=== PATIENT | female | born 1940 | race Caucasian/White ===

== ENCOUNTER 2022-11-14 12:19 | Emergency (ER) | payer MEDICARE, SELFPAY ==
[2022-11-14 12:28] VITALS: BP 106/59; PULSE 67; RESP 18; TEMP 37; O2SAT 97
--- NOTE | 2022-11-14 13:05 | ED_ITS ---
Documented by User: TANVIR Thompson 11/14/22 13:57 HPI - General Adult General Chief complaint: Wound/Laceration Stated complaint: WOUND CHECK Time Seen by Provider: 11/14/22 12:53 Source: patient and family Source information: daughter Mode of arrival: walk-in Limitations: no limitations History of Present Illness HPI narrative: patient is an 82 -year-old female presents from home with her daughter for evaluation of possible skin sore to the right buttock. Patient has remote history of hip replacement and states it sometimes aches and she'll favor her right side. Daughter concerned that this is a bedsore formation. The patient denies any significant pain, she is not diabetic, she does cook her own meals and there is question regarding caloric consumption and protein. Patient states she has had some falls in the past and has always wondered if her hip was affected. Patient appears in no distress and denies any recent fall but is agreeable to plain film x-rays in addition to initiation of wound care. Patient's daughter states that try to get into family doctor today, but were unable to do so and did not want to risk waiting the weekend. Related Data Allergies Allergy/AdvReac Type Severity Reaction Status Date / Time No Known Drug Allergies Allergy Verified 11/14/22 12:31 Review of Systems ROS Constitutional Denies: fever or chills Ears, nose, mouth, and throat Denies: throat pain Respiratory Denies: shortness of breath or cough Gastrointestinal Denies: abdominal pain or nausea Musculoskeletal Denies: back pain or neck pain Psychiatric Denies: anxiety Exam Narrative Exam Narrative: Nurses notes and vital signs reviewed and patient is not hypoxic. General: The patient appears well and in no apparent distress. resting comfo rtably on the cot Skin: Warm, dry, no pallor noted. RN Riley present at bedside, patient's right buttock initial tuberosity bony prominence has a 1.5 cm area of erythema non- blanchable with slight scab formation of the skin, but no external skin disruption to obtain a wound culture. No active drainage. Minimal erythema and desquamation in the inner buttock, but no extension into the area in question.. Patient denies any skin allodynia and there is no evidence of vesicle around the distribution. Head: Normocephalic, atraumatic Neck: Supple, trachea mid-line, no tenderness, no lymphadenopathy Eye: no conjunctival injection, no drainage Ears, Nose, Mouth, and Throat: external exam unremarkable Cardiovascular: irregularly irregular history of atrial fibrillation Respiratory: Patient is in no distress, no accessory muscle use, lungs are clear to auscultation, no wheezing, rales or rhonchi. Chest Wall: no tenderness Back: non-tender, no CVA tenderness Musculoskeletal: normal ROM, no tenderness, no swelling, denies pain with PROM of Hips. Pt has no skin break down at elbows or heels. has remote scab dorsal forearm. GI: Normal bowel sounds, no tenderness to palpation, no masses appreciated. No rebound, guarding, or rigidity noted. Neurological: A&O x4 Psychiatric: Cooperative Constitutional Vital Signs, click to edit/add: Last Vital Signs Temp 98.6 F 11/14/22 12:28 Pulse 83 11/14/22 14:39 Resp 18 11/14/22 14:39 BP 99/73 11/14/22 14:39 Pulse Ox 97 11/14/22 14:39 O2 Del Method Room Air 11/14/22 14:39 Course Vital Signs Vital signs: Vital Signs Temperature 98.6 F 11/14/22 12:28 Pulse Rate 67 11/14/22 12:28 Respiratory Rate 18 11/14/22 12:28 Blood Pressure 106/59 L 11/14/22 12:28 Pulse Oximetry 97 11/14/22 12:28 Oxygen Delivery Method Room Air 11/14/22 12:28 Temperature 98.6 F 11/14/22 12:28 Pulse Rate 83 11/14/22 14:39 Respiratory Rate 18 11/14/22 14:39 Blood Pressure 99/73 11/14/22 14:39 Pulse Oximetry 97 11/14/22 14:39 Oxygen Delivery Method Room Air 11/14/22 14:39 Medical Decision Making MDM Narrative Medical decision making narrative: very localized bedsore right buttock over the bony prominence of the initial tuberosity, we discussed protein intake with her diet, skin is not yyet disrupted, a deodorant protective dressing was applied pending her follow-up with wound care clinic. Patient's daughter may call to schedule an appointment and obtain referral from PCP if needed. Unable to take a wound culture today is a skin is not yet disrupted and appears to be more of a advancing stage I presentation. Discussed patient's concern of remote falls and hips, with one being replaced, she has no pain with gentle manipulation of the bilateral hips and x-ray was performed and discussed a bedside. Wound care discussed, dressing may remain intact, recommend offloading the area with changing position while sitting X-ray of the pelvis and left hip discussed a bedside, no evidence of fracture. 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 Recommend follow-up to wound care as discussed The patient is to followup with primary care physician ( wound care clinci in next 2-3 days or to return to the emergency department should any of the signs or symptoms worsen or new symptoms develop. Patient had questions answered. The patient agrees with the following Diagnosis and Treatment plan and the patient will be discharged home. Discharge Plan Discharge Chief Complaint: Wound/Laceration Clinical Impression: Stage I pressure ulcer of buttock Patient Disposition: Home, Self-Care Instructions: High Protein / High Calorie Diet (ED) Stand Alone Forms: Portal Instructions Referrals: Shaheed White MD [Physician] - As soon as possible (Alessia Cook pt. ) Jorge Alvares MD [Physician] - As soon as possible (Wound care clinic) Discharge Date/Time: 11/14/22 14:41 Documented by User: Maine Aragon MD 11/14/22 19:26 HPI - General Adult General Chief complaint: Wound/Laceration Stated complaint: WOUND CHECK Time Seen by Provider: 11/14/22 12:53 Related Data Allergies Allergy/AdvReac Type Severity Reaction Status Date / Time No Known Drug Allergies Allergy Verified 11/14/22 12:31 Exam Constitutional Vital Signs, click to edit/add: Last Vital Signs Temp 98.6 F 11/14/22 12:28 Pulse 83 11/14/22 14:39 Resp 18 11/14/22 14:39 BP 99/73 11/14/22 14:39 Pulse Ox 97 11/14/22 14:39 O2 Del Method Room Air 11/14/22 14:39 Course Vital Signs Vital signs: Vital Signs Temperature 98.6 F 11/14/22 12:28 Pulse Rate 67 11/14/22 12:28 Respiratory Rate 18 11/14/22 12:28 Blood Pressure 106/59 L 11/14/22 12:28 Pulse Oximetry 97 11/14/22 12:28 Oxygen Delivery Method Room Air 11/14/22 12:28 Temperature 98.6 F 11/14/22 12:28 Pulse Rate 83 11/14/22 14:39 Respiratory Rate 18 11/14/22 14:39 Blood Pressure 99/73 11/14/22 14:39 Pulse Oximetry 97 11/14/22 14:39 Oxygen Delivery Method Room Air 11/14/22 14:39 Medical Decision Making MDM Narrative Medical decision making narrative: very localized bedsore right buttock over the bony prominence of the initial tuberosity, we discussed protein intake with her diet, skin is not yyet disrupted, a deodorant protective dressing was applied pending her follow-up with wound care clinic. Patient's daughter may call to schedule an appointment and obtain referral from PCP if needed. Unable to take a wound culture today is a skin is not yet disrupted and appears to be more of a advancing stage I presentation. Discussed patient's concern of remote falls and hips, with one being replaced, she has no pain with gentle manipulation of the bilateral hips and x-ray was performed and discussed a bedside. Wound care discussed, dressing may remain intact, recommend offloading the area with changing position while sitting X-ray of the pelvis and left hip discussed a bedside, no evidence of fracture. 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 Recommend follow-up to wound care as discussed The patient is to followup with primary care physician ( wound care clinci in next 2-3 days or to return to the emergency department should any of the signs or symptoms worsen or new symptoms develop. Patient had questions answered. The patient agrees with the following Diagnosis and Treatment plan and the patient will be discharged home. Attending physician attestation I have seen and evaluated this patient. I have reviewed the mid-level provider?s documentation medical decision making and treatment plan. I agree with the mid- level provider?s assessment, and plan. Discharge Plan Discharge Chief Complaint: Wound/Laceration Clinical Impression: Stage I pressure ulcer of buttock Patient Disposition: Home, Self-Care Instructions: High Protein / High Calorie Diet (ED) Stand Alone Forms: Portal Instructions Referrals: Shaheed White MD [Physician] - As soon as possible (Alessia Cook pt. ) Jorge Alvares MD [Physician] - As soon as possible (Wound care clinic) Discharge Date/Time: 11/14/22 14:41
--- NOTE | 2022-11-14 13:36 | XR_ITS ---
The [address] [address] Patient Name: JUAQUIN CASTRO MRN: [id number] date: 1940 Sex: F Assigned Patient Location: ER Current Patient Location: ED.MAIN Accession/Order Number: [id number] Exam Date: 11/14/2022 13:15 Report Date: 11/14/2022 19:54 At the request of: JANNET FABIAN Procedure: XR hip LT 2V w/ pelvis PROCEDURE: XR hip LT 2V w/ pelvis HISTORY: history of replacement/ falls COMPARISON: None. FINDINGS: BONES:Mild narrowing of right hip joint space and small periarticular degenerative osteophytes, and suspected subchondral cysts. Prior left hip replacement without hardware fracture loosening. No bone fracture. SOFT TISSUES:No visible soft tissue swelling. EFFUSION:None visible. OTHER: Negative. XR/XR hip LT 2V w/ pelvis IMPRESSION: 1. No acute bone abnormality. 2. 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 3. Left hip replacement without hardware failure or acute bone abnormality. Preliminary findings were provided to the emergency department at time of imaging. Electronically authenticated by: MOISE VEGA Date: 11/14/2022 19:54
[2022-11-14 14:39] VITALS: BP 99/73; PULSE 83; RESP 18; O2SAT 97
== END 2022-11-14 14:41 | disposition home or self-care (01) ==
PROVIDERS: Emergency Provider Emergency Medicine; PCP Nurse Practitioner Family
DX: L89.311 Pressure ulcer of right buttock, stage 1 (principal); Z96.641 Presence of right artificial hip joint
CPT/HCPCS: 73502; 99283

== ENCOUNTER 2022-11-20 13:07 | Outpatient (OUT) | payer MEDICARE, SELFPAY | END 2022-11-20 13:08 | disposition home or self-care (01) | LOC: WC 13:07 | PROVIDERS: PCP Nurse Practitioner Family; Visit Provider Surgery | DX: L89.151 Pressure ulcer of sacral region, stage 1 (principal) | CPT/HCPCS: G0463 ==

== ENCOUNTER 2022-12-01 13:20 | Outpatient (OUT) | payer MEDICARE, SELFPAY ==
[2022-12-01 13:48] LABS: Basophils Percent Auto 0.6 % (0.2-2.0); Eosinophils Absolute Auto 0.1 10^3/uL (0.0-0.7); Eosinophils Percent Auto 1.6 % (0.9-7.0); Hematocrit 36.9 % (36.0-48.0); Hemoglobin 11.8 g/dL (12.0-16.0); Immature Granulocytes Abs Auto 0.01 10^3/uL (0.00-0.03); Immature Granulocytes Pct Auto 0.2 % (0.0-0.5); Lymphocytes Absolute Auto 1.5 10^3/uL (1.2-3.8); Mean Corpuscular Hemoglobin 31.7 pg (26.7-34.0); Mean Corpuscular Volume 99.2 fL (81.0-99.0); Monocytes Absolute Auto 0.5 10^3/uL (0.3-0.8); Neutrophils Absolute Auto 2.9 10^3/uL (1.4-6.5); Neutrophils Percent Auto 58.6 % (43.0-75.0); Platelet Count 137 10^3/uL (150-450); Red Blood Count 3.72 10^6/uL (4.20-5.40); Red Cell Distribution Width 15.6 % (11.0-15.0)
[2022-12-01 13:51] LABS: Erythrocyte Sedimentation Rate 23 mm/hr (<=30)
[2022-12-01 14:06] LABS: Alanine Aminotransferase 28 U/L (14-59); Albumin Level 3.7 g/dL (3.4-5.0); Alkaline Phosphatase 63 U/L (46-116); Anion Gap 7.9; Aspartate Amino Transferase 30 U/L (15-37); BUN Creatinine Ratio 21.1; Bilirubin Total 0.7 mg/dL (0.2-1.0); Calcium 9.9 mg/dL (8.5-10.1); Chloride 102 mmol/L (98-107); Estimated GFR (African America 35 (>=60); Estimated GFR (Non-African Ame 29 (>=60); Globulin 3.6 g/dL; Glucose 80 mg/dL (74-106); Potassium 3.9 mmol/L (3.5-5.1); Sodium 141 mmol/L (136-145); Total Protein 7.3 g/dL (6.4-8.2)
[2022-12-01 14:14] LABS: Magnesium 2.5 mg/dL (1.8-2.4); Thyroid Stimulating Hormone 3.208 uIU/mL (0.358-3.740)
[2022-12-01 14:43] LABS: Free T4 0.93 ng/dL (0.76-1.46)
[2022-12-01 15:36] LABS: Bilirubin Urine NEGATIVE (NEGATIVE); Blood Urine NEGATIVE (NEGATIVE); Clarity Urine CLEAR (CLEAR); Color Urine LT. YELLOW (YELLOW); Glucose Urine UA NEGATIVE (NEGATIVE); Ketones Urine NEGATIVE (NEGATIVE); Leukocyte Esterase Urine NEGATIVE (NEGATIVE); Nitrite Urine NEGATIVE (NEGATIVE); Protein Urine NEGATIVE (NEG/TRACE); Specific Gravity Urine 1.015 (1.005-1.025); Urobilinogen Urine 0.2 EU/dL (0.2-1.0)
[2022-12-01 15:47] LABS: Urine Microscopic Indicated ALREADY ORDERED
[2022-12-01 15:49] LABS: Bacteria Urine NONE SEEN #/HPF (NONE SEEN); Cast Seen? NONE SEEN #/LPF (NONE SEEN); Crystals Seen? None Seen #/HPF (None Seen); Mucus Urine NONE SEEN (NONE SEEN); RBC Urine NONE SEEN #/HPF (0-2); Squamous Epithelial Cell Urine RARE #/LPF (NONE/RARE); Urine Culture Indicated NO; WBC Urine NONE SEEN #/HPF (NONE SEEN)
== END 2022-12-01 13:21 | disposition home or self-care (01) ==
LOC: LAB 13:22
PROVIDERS: PCP Nurse Practitioner; Visit Provider Nurse Practitioner
DX: R53.1 Weakness (principal); E55.9 Vitamin D deficiency, unspecified; R41.3 Other amnesia
CPT/HCPCS: 36415; 80053; 81003; 82306; 82607; 83540; 83735; 84439; 84443; 85025; 85652

== ENCOUNTER 2023-01-04 15:09 | Observation (INO) | payer OTHER, SELFPAY ==
[2023-01-04] VITALS (38 sets, daily range): BP systolic 74–137; BP diastolic 49–95; PULSE 75–92; RESP 0–97; TEMP 36.4–37.3; O2SAT 93–100; BMI 21.3; BMI 20.8
--- NOTE | 2023-01-04 15:31 | ECG_ITS ---
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
--- NOTE | 2023-01-04 15:37 | ED_ITS ---
HPI - General Adult General Chief complaint: Weakness Stated complaint: Hypotension Time Seen by Provider: 01/04/23 15:29 Related Data Home Medications Medication Instructions Recorded Confirmed albuterol sulfate 2.5 mg/3 mL 2.5 mg inhalation Q6H 01/04/23 01/04/23 (0.083 %) solution for nebulization alendronate 70 mg tablet 70 mg PO QWEEK 01/04/23 01/04/23 apixaban 2.5 mg tablet (Eliquis) 2.5 mg PO BID 01/04/23 01/04/23 atorvastatin 80 mg tablet 80 mg PO DAILY 01/04/23 01/04/23 bumetanide 1 mg tablet 2 mg PO BID 01/04/23 01/04/23 carbidopa 10 mg-levodopa 100 mg 1 tab PO TID 01/04/23 01/04/23 tablet empagliflozin 10 mg tablet 10 mg PO DAILY 01/04/23 01/04/23 (Jardiance) fluoxetine 40 mg capsule 40 mg PO DAILY 01/04/23 01/04/23 ipratropium bromide 0.02 % 0.5 mg inhalation Q6H 01/04/23 01/04/23 solution for inhalation metoprolol succinate 25 mg 37.5 mg PO DAILY 01/04/23 01/04/23 tablet,extended release 24 hr olanzapine 2.5 mg tablet 2.5 mg PO QPM 01/04/23 01/04/23 potassium chloride 20 mEq 20 meq PO DAILY 01/04/23 01/04/23 tablet,extended release(part/cryst) sacubitril 24 mg-valsartan 26 mg 1 tab PO BID 01/04/23 01/04/23 tablet (Entresto) umeclidinium 62.5 mcg-vilanterol 1 inh inhalation DAILY 01/04/23 01/04/23 25 mcg/actuation powdr for inhalation (Anoro Ellipta) Allergies Allergy/AdvReac Type Severity Reaction Status Date / Time No Known Drug Allergies Allergy Verified 11/14/22 12:31 [facility] Medical History (Updated 01/04/23 @ 18:44 by Maverick Gomez) Exam Constitutional Vital Signs, click to edit/add: Last Vital Signs Temp 99.2 F 01/04/23 15:13 Pulse 88 01/04/23 16:20 Resp 2 L 01/04/23 16:20 BP 130/73 01/04/23 16:20 Pulse Ox 100 01/04/23 16:20 O2 Del Method Room Air 01/04/23 15:13 Course Vital Signs Vital signs: Vital Signs Temperature 99.2 F 01/04/23 15:13 Pulse Rate 79 01/04/23 15:13 Respiratory Rate 18 01/04/23 15:13 Blood Pressure 108/72 01/04/23 15:13 Pulse Oximetry 98 01/04/23 15:13 Oxygen Delivery Method Room Air 01/04/23 15:13 Temperature 99.2 F 01/04/23 15:13 Pulse Rate 88 01/04/23 16:20 Respiratory Rate 2 L 01/04/23 16:20 Blood Pressure 130/73 01/04/23 16:20 Pulse Oximetry 100 01/04/23 16:20 Oxygen Delivery Method Room Air 01/04/23 15:13 Medical Decision Making MDM Narrative Medical decision making narrative: The daughter told us that the patient had been taking numerous diuretics and had not been eating normally or drinking fluids at home like she should. She told us that the patient has Parkinson's so she is often shaky. Patient was placed on quality assurance monitor final and EKG obtained. Blood drawn and sent for evaluation. orthostatics are positive with thirty point drop in systolic blood pressure going from sitting to standing. Patient was ordered to receive a liter normal saline IV fluid. She was still orthostatic after 2 liters of normal saline - with greater than 30 point drop in her systolic BP - and unsteady when standing. Call placed to the diamond powder technician telehospitalist to discuss admission as this patient lives alone and is not going to be able to care for herself. Dr Melendez and I discussed the patient's case and he will admit her on behalf of Dr White, who will assume care tomorrow morning. Family and patient informed of need for admission and are agreeable. Lab Data Lab results reviewed: Yes I reviewed the patient's lab results Labs: Lab Results 01/04/23 01/04/23 Range/Units 15:55 16:45 WBC 5.8 (4.0-11.0) 10^3/uL RBC 3.29 L (4.20-5.40) 10^6/uL Hgb 10.8 L (12.0-16.0) g/dL Hct 33.2 L (36.0-48.0) % MCV 100.9 H (81.0-99.0) fL MCH 32.8 (26.7-34.0) pg MCHC 32.5 (29.9-35.2) g/dL RDW 14.9 (11.0-15.0) % Plt Count 138 L (150-450) 10^3/uL MPV 9.7 (9.5-13.5) fL Neut % (Auto) 57.3 (43.0-75.0) % Lymph % (Auto) 30.3 (20.5-60.0) % Cloud % (Auto) 9.8 (1.7-12.0) % Eos % (Auto) 1.7 (0.9-7.0) % Baso % (Auto) 0.7 (0.2-2.0) % Neut # (Auto) 3.3 (1.4-6.5) 10^3/uL Lymph # (Auto) 1.8 (1.2-3.8) 10^3/uL Cloud # (Auto) 0.6 (0.3-0.8) 10^3/uL Eos # (Auto) 0.1 (0.0-0.7) 10^3/uL Baso # (Auto) 0.0 (0.0-0.1) 10^3/uL Abs Immat Gran (auto) 0.01 (0.00-0.03) 10^3/uL Imm/Tot Granulo (auto) 0.2 (0.0-0.5) % Sodium 142 (136-145) mmol/L Potassium 3.6 (3.5-5.1) mmol/L Chloride 102 (98-107) mmol/L Carbon Dioxide 36.2 H (21.0-32.0) mmol/L Anion Gap 7.4 BUN 28.0 H (7.0-18.0) mg/dL Creatinine 1.74 H (0.55-1.02) mg/dL Est GFR ( Amer) 34 L (>=60) Est GFR (Non-Af Amer) 28 L (>=60) BUN/Creatinine Ratio 16.1 Glucose 89 (74-106) mg/dL Calcium 10.4 H (8.5-10.1) mg/dL Total Bilirubin 0.7 (0.2-1.0) mg/dL AST 26 (15-37) U/L ALT 20 (14-59) U/L Alkaline Phosphatase 54 (46-116) U/L Total Protein 6.8 (6.4-8.2) g/dL Albumin 3.6 (3.4-5.0) g/dL Globulin 3.2 g/dL Albumin/Globulin Ratio 1.1 Urine Color Lt. yellow (YELLOW) Urine Clarity Clear (CLEAR) Urine pH 7.0 (5.0-9.0) Ur Specific Lindsay 1.010 (1.005-1.025) Urine Protein Negative (NEG/TRACE) mg/dL Urine Glucose (UA) 250 A (NEGATIVE) mg/dL Urine Ketones Negative (NEGATIVE) mg/dL Urine Occult Blood Trace-i (NEGATIVE) Urine Nitrite Negative (NEGATIVE) Urine Bilirubin Negative (NEGATIVE) Urine Urobilinogen 0.2 (0.2-1.0) EU/dL Ur Leukocyte Esterase Negative (NEGATIVE) Urine RBC 0-2 (0-2) #/HPF Urine WBC None seen (NONE SEEN) #/HPF Ur Squamous Epith Cells Rare (NONE/RARE) #/LPF Urine Crystals None seen (None Seen) #/HPF Urine Bacteria Trace A (NONE SEEN) #/HPF Urine Casts None seen (NONE SEEN) #/LPF Urine Mucus None seen (NONE SEEN) Ur Culture Indicated? No ECG Data Interpretation: EKG interpretation: Emergency Department physician interpretation. Normal sinus rhythm at 83bpm. RVH, n on-specific ST-T changes, increased QRS - inc BBB. No ST segment elevation but ST depression/TWI noted in leads V4-V6. Discharge Plan Discharge Chief Complaint: Weakness Clinical Impression: Orthostasis, Difficulty in walking Patient Disposition: Admitted as Observation Time of Disposition Decision: 18:41 Prescriptions / Home Meds: No Action alendronate 70 mg tablet 70 mg PO QWEEK Eliquis 2.5 mg tablet 2.5 mg PO BID atorvastatin 80 mg tablet 80 mg PO DAILY bumetanide 1 mg tablet 2 mg PO BID carbidopa-levodopa 10-100 mg tablet 1 tab PO TID Jardiance 10 mg tablet 10 mg PO DAILY fluoxetine 40 mg capsule 40 mg PO DAILY metoprolol succinate 25 mg tablet extended release 24 hr 37.5 mg PO DAILY olanzapine 2.5 mg tablet 2.5 mg PO QPM potassium chloride 20 mEq tablet,ER particles/crystals 20 meq PO DAILY Entresto 24-26 mg tablet 1 tab PO BID Anoro Ellipta 62.5-25 mcg/actuation blister with device 1 inh INHALATION DAILY ipratropium bromide 0.02 % solution 0.5 mg inhalation Q6H albuterol sulfate 2.5 mg /3 mL (0.083 %) solution for nebulization 2.5 mg inhalation Q6H Additional Instructions: Telemetry monitoring, Dr White's service Referrals: Alessia Nichols [Primary Care Provider] - 1 week
[2023-01-04] MEDS: 0.9 % SODIUM CHLORIDE 1,000 ML 999 ML IV (15:51)
[2023-01-04 16:03] LABS: Basophils Percent Auto 0.7 % (0.2-2.0); Eosinophils Absolute Auto 0.1 10^3/uL (0.0-0.7); Eosinophils Percent Auto 1.7 % (0.9-7.0); Hematocrit 33.2 % (36.0-48.0); Hemoglobin 10.8 g/dL (12.0-16.0); Immature Granulocytes Abs Auto 0.01 10^3/uL (0.00-0.03); Immature Granulocytes Pct Auto 0.2 % (0.0-0.5); Lymphocytes Absolute Auto 1.8 10^3/uL (1.2-3.8); Lymphocytes Percent Auto 30.3 % (20.5-60.0); Mean Corpuscular HGB Conc 32.5 g/dL (29.9-35.2); Mean Corpuscular Hemoglobin 32.8 pg (26.7-34.0); Mean Corpuscular Volume 100.9 fL (81.0-99.0); Mean Platelet Volume 9.7 fL (9.5-13.5); Monocytes Absolute Auto 0.6 10^3/uL (0.3-0.8); Monocytes Percent Auto 9.8 % (1.7-12.0); Neutrophils Absolute Auto 3.3 10^3/uL (1.4-6.5); Neutrophils Percent Auto 57.3 % (43.0-75.0); Platelet Count 138 10^3/uL (150-450); Red Blood Count 3.29 10^6/uL (4.20-5.40); Red Cell Distribution Width 14.9 % (11.0-15.0); White Blood Count 5.8 10^3/uL (4.0-11.0)
[2023-01-04 16:17] LABS: Alanine Aminotransferase 20 U/L (14-59); Albumin Globulin Ratio 1.1; Albumin Level 3.6 g/dL (3.4-5.0); Alkaline Phosphatase 54 U/L (46-116); Anion Gap 7.4; Aspartate Amino Transferase 26 U/L (15-37); BUN Creatinine Ratio 16.1; Bilirubin Total 0.7 mg/dL (0.2-1.0); Calcium 10.4 mg/dL (8.5-10.1); Carbon Dioxide 36.2 mmol/L (21.0-32.0); Chloride 102 mmol/L (98-107); Estimated GFR (African America 34 (>=60); Estimated GFR (Non-African Ame 28 (>=60); Globulin 3.2 g/dL; Glucose 89 mg/dL (74-106); Potassium 3.6 mmol/L (3.5-5.1); Sodium 142 mmol/L (136-145); Total Protein 6.8 g/dL (6.4-8.2)
[2023-01-04 16:54] LABS: Bilirubin Urine NEGATIVE (NEGATIVE); Blood Urine TRACE-I (NEGATIVE); Clarity Urine CLEAR (CLEAR); Color Urine LT. YELLOW (YELLOW); Glucose Urine UA 250 mg/dL (NEGATIVE); Ketones Urine NEGATIVE (NEGATIVE); Leukocyte Esterase Urine NEGATIVE (NEGATIVE); Nitrite Urine NEGATIVE (NEGATIVE); Protein Urine NEGATIVE (NEG/TRACE); Urobilinogen Urine 0.2 EU/dL (0.2-1.0)
[2023-01-04 16:56] LABS: Urine Microscopic Indicated YES
[2023-01-04 17:03] LABS: Bacteria Urine TRACE #/HPF (NONE SEEN); Cast Seen? NONE SEEN #/LPF (NONE SEEN); Crystals Seen? None Seen #/HPF (None Seen); Mucus Urine NONE SEEN (NONE SEEN); RBC Urine 0-2 #/HPF (0-2); Squamous Epithelial Cell Urine RARE #/LPF (NONE/RARE); Urine Culture Indicated NO; WBC Urine NONE SEEN #/HPF (NONE SEEN)
[2023-01-04] MEDS: 0.9 % SODIUM CHLORIDE 1,000 ML 1000 ML IV (17:23)
--- NOTE | 2023-01-04 20:58 | P.PN_ITS ---
Progress Note: Subjective Subjective Interval history: CC: Syncopal dizziness, lightheadedness HPI: This is a very pleasant 82 years old female who brought from home for evaluation of above complaints. Patient stating that lately she has been feeling dizzy and lightheaded when she is trying to stand up. She denies any fevers, chills, night sweats. She is taking medications for blood pressure and congestive heart failure including Entresto and Bumex. Lately antiparkinsonian medications can be added to her regiment and she started to feel dizzy and lightheaded since. On presentation to emergency room patient found to be orthostatic. She remains orthostatic after administration of few liters of IV fluids. Exam Narrative Exam Narrative: Physical Exam: Not in distress, pleasant, lucid, cooperative, Head - atraumatic, eyes - pupils equal, round, reactive to light, extra ocular movement intact, MMM Neck - supple, thyroid not enlarged, LN not palpated Lungs - clear to auscultation, no dullness on percussion CVS - heart sounds S1, S2, no additional murmurs gallop, irregularly irregular Gastrointestinal?abdomen is soft, non-tender, non-distended, no organomegaly, positive bowel sounds Extremities no clubbing, cyanosis or edema Neurological?cranial nerve II?XII grossly intact, no meningeal signs, no cerebellar signs, no sensory deficit Musculoskeletal - DJD related changes in multiple joints, no effusions, ROM preserved Dermatological - the skin dry, warm, no rashes Psychiatric?patient is AAO X3, patient has normal affect Constitutional Vital Signs, click to edit/add: Last Vital Signs Temp 97.6 F 01/04/23 19:47 Pulse 82 01/04/23 19:59 Resp 16 01/04/23 19:47 BP 102/62 01/04/23 19:47 Pulse Ox 93 L 01/04/23 19:47 O2 Del Method Room Air 01/04/23 19:47 Progress Note: Objective Labs Labs: Short CBC 01/04/23 Range/Units 15:55 WBC 5.8 (4.0-11.0) 10^3/uL Hgb 10.8 L (12.0-16.0) g/dL Hct 33.2 L (36.0-48.0) % Plt Count 138 L (150-450) 10^3/uL BMP 01/04/23 15:55 Sodium 142 Potassium 3.6 Chloride 102 Carbon Dioxide 36.2 H BUN 28.0 H Creatinine 1.74 H Glucose 89 Calcium 10.4 H Liver Function 01/04/23 Range/Units 15:55 Total Bilirubin 0.7 (0.2-1.0) mg/dL AST 26 (15-37) U/L ALT 20 (14-59) U/L Alkaline Phosphatase 54 (46-116) U/L Albumin 3.6 (3.4-5.0) g/dL Urine 01/04/23 Range/Units 16:45 Urine Color Lt. yellow (YELLOW) Urine Clarity Clear (CLEAR) Urine pH 7.0 (5.0-9.0) Ur Specific [place] 1.010 (1.005-1.025) Urine Protein Negative (NEG/TRACE) mg/dL Urine Glucose (UA) 250 A (NEGATIVE) mg/dL Progress Note: A&P Assessment and Plan (1) Orthostasis: Assessment and Plan: I am going to hold her Bumex Continue with gentle, judicious IV fluid resuscitation while monitoring for signs of fluid overload I am going to order echocardiogram and ultrasound of carotid (2) Atrial fibrillation: Assessment and Plan: Continue rate/rhythm control with metoprolol Continue anticoagulation with Eliquis (3) CHF (congestive heart failure): Assessment and Plan: Continue with Entresto. Patient does not appear to be fluid overloaded. Strict I's and O's and daily weight. Follow-up results of the echocardiogram. Bumex on hold (4) High cholesterol: Assessment and Plan: Resume home dose of statin (5) Hypertension: Assessment and Plan: Blood pressure seems to be reasonably well controlled with current regimen. Adjust as needed (6) Parkinson's disease: Assessment and Plan: Continue with carbidopa/levodopa was recently started. Consider consultation with neurologist to adjust the dose Plan END: As the provider for the telehealth service, I attest that I introduced myself to the patient, provided my credentials, disclosed by location and determined that based on a review of the patient's chart and discussion with members of the patient's treatment team, telemedicine via real-time, 2 way, and interactive audio and video platform is an appropriate and effective means of providing the service. ?The patient and I mutually agree this visit is appropriate for telemedicine. ?The virtual encounter was taken place from? [place], [place]. ?The encounter took approximately 35 minutes. ?The nurse was present during the entire time and I was able to move the stethoscope in appropriate directions. ?The patient was evaluated at the Hospital ? Portions of this note may be dictated using [employer] voice recognition software. Variances in spelling and vocabulary are possible and unintentional. Not all errors may be caught and/or corrected. Please notify the author if any discrepancies are noted and/or if the meaning of any statement is unclear.? ? Patient verbally consented for treatment via video visit with patient currently located at the [facility] and provider located in [place]. Telemedicine Attestation Telemedicine Attestation I conducted this encounter from [[place]] via secure live, [id number] video conference with the patient, located at [facility] with [near syncope]. Prior to the interview, the risks and benefits of telemedicine were discussed with the patient and verbal consent was obtained.
[2023-01-04] MEDS: 0.9 % SODIUM CHLORIDE 1,000 ML 75 ML IV (21:38)
[2023-01-04] MEDS: SACUBITRIL/VALSARTAN 1 EACH TABLET 1 TAB PO (21:40)
[2023-01-04] MEDS: CARBIDOPA/LEVODOPA 10 MG/100 MG TABLET 1 TAB PO (21:40)
[2023-01-04] MEDS: APIXABAN 5 MG TABLET 2.5 MG PO (21:40)
[2023-01-04] MEDS: ALBUTEROL SULFATE 2.5 MG/3 ML VIAL NEB IH (21:53)
[2023-01-04] MEDS: IPRATROPIUM BROMIDE 0.5 MG/2.5 ML VIAL.NEB IH (21:53)
[2023-01-05] VITALS (12 sets, daily range): BP systolic 89–110; BP diastolic 57–69; PULSE 79–95; RESP 16; TEMP 36.5; O2SAT 94–95
[2023-01-05] MEDS: IPRATROPIUM BROMIDE 0.5 MG/2.5 ML VIAL.NEB IH (03:59)
[2023-01-05] MEDS: ALBUTEROL SULFATE 2.5 MG/3 ML VIAL NEB IH (03:59)
[2023-01-05] MEDS: CARBIDOPA/LEVODOPA 10 MG/100 MG TABLET 1 TAB PO (05:25)
[2023-01-05 05:44] LABS: Alanine Aminotransferase <6 U/L (14-59); Albumin Globulin Ratio 1.1; Alkaline Phosphatase 46 U/L (46-116); Anion Gap 9.7; Aspartate Amino Transferase 26 U/L (15-37); BUN Creatinine Ratio 15.9; Bilirubin Total 0.5 mg/dL (0.2-1.0); Carbon Dioxide 31.9 mmol/L (21.0-32.0); Chloride 106 mmol/L (98-107); Estimated GFR (African America 37 (>=60); Estimated GFR (Non-African Ame 30 (>=60); Globulin 2.7 g/dL; Glucose 83 mg/dL (74-106); Potassium 3.6 mmol/L (3.5-5.1); Sodium 144 mmol/L (136-145); Total Protein 5.7 g/dL (6.4-8.2)
[2023-01-05] MEDS: FLUOXETINE HCL 20 MG CAPSULE 40 MG PO (10:04)
[2023-01-05] MEDS: POTASSIUM CHLORIDE 10 MEQ ER TABLET 20 MEQ PO (10:04)
[2023-01-05] MEDS: CANAGLIFLOZIN 100 MG TABLET PO (10:04)
[2023-01-05] MEDS: METOPROLOL SUCCINATE 25 MG TAB.ER.24H 37.5 MG PO (10:05)
[2023-01-05] MEDS: APIXABAN 5 MG TABLET 2.5 MG PO (10:05)
[2023-01-05] MEDS: ATORVASTATIN CALCIUM 40 MG TABLET 80 MG PO (10:05)
[2023-01-05] MEDS: SACUBITRIL/VALSARTAN 1 EACH TABLET 1 TAB PO (10:05)
--- NOTE | 2023-01-05 11:12 | PM.HP ---
H&P: HPI History of Present Illness Chief complaint: Lightheaded, weakness Narrative: 82 y/o female with history of CHF and Parkinson's to ER with lightheadedness. C/o feeling lightheaded whenever she stands. Added sinemet and symptoms worse since. Seen by cardiology in December with orthostatic hypotension and decreased bumex. PEREZ performed 12/26 showed EF 25%. Continues to take entresto and bumex but reports decreased PO. Not eating or drinking as much but no nausea. Symptoms worsened and to ER. Given 2 L IV fluids but continued to have orthostatic hypotension and admitted. Continued IV fluids. Resumed medication but held bumex. Much improved overnight. No longer having orthostatic hypotension and vitals stable. Not as lightheaded when up and moving. Normal PO. Review of Systems ROS Constitutional Denies: fever, chills or night sweats Cardiovascular Reports: lightheadedness; Denies: chest pain, palpitations or edema Respiratory Denies: shortness of breath, cough or wheezing Gastrointestinal Denies: abdominal pain, nausea, vomiting or diarrhea Genitourinary Denies: painful urination [facility] Medical History (Updated 01/05/23 @ 10:44 by Shaheed White MD) Family History (Updated 01/04/23 @ 20:14 by Swapna Yu) Father Family history of CHF (congestive heart failure) Family history of hypertension Mother Family history of hypertension Family history of stroke Social History (Updated 01/04/23 @ 20:16 by Swapna Yu) Within the past year, how often did you have a drink containing alcohol: never Within the past year, how often did you have six or more drinks on one occasion: never Score interpretation: A score less than 3 is consistent with normal alcohol consumption. 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, [employer] Known occupational exposures/hazards: No Highest level of school completed/degree received: 11th grade Do you want help with school or training: No Are you now , , , , never or living with a partner: In a typical week, how many times do you talk on the telephone with family, friends, or neighbors: 3 or more times per week How often do you get together with friends or relatives: 3 or more times per week How often do you attend anglican or mandaeism services: 4 or more times per year Do you belong to any clubs or organizations such as anglican groups unions, fraternal or athletic groups, or school groups: no Total score: 2 Score interpretation: A score of greater than or equal to 2 indicates the lowest level of social isolation. Little interest or pleasure in doing things: not at all Feeling down, depressed, or hopeless: not at all Feel stressed/tense/nervous/anxious/difficulty sleeping: not at all Due to disability, difficulty making decisions: No Do you think of yourself as: straight/heterosexual Gender Identity: female Meds Home Medications and Allergies Home Medications Medication Instructions Recorded Confirmed Type albuterol sulfate 2.5 mg/3 mL 2.5 mg inhalation Q6H PRN 01/04/23 01/05/23 History (0.083 %) solution for nebulization shortness of breath or wheezing alendronate 70 mg tablet 70 mg PO QWEEK 01/04/23 01/04/23 History apixaban 2.5 mg tablet (Eliquis) 2.5 mg PO BID 01/04/23 01/04/23 History atorvastatin 80 mg tablet 80 mg PO DAILY 01/04/23 01/04/23 History bumetanide 1 mg tablet 2 mg PO BID 01/04/23 01/04/23 History carbidopa 10 mg-levodopa 100 mg 1 tab PO TID 01/04/23 01/04/23 History tablet empagliflozin 10 mg tablet 10 mg PO DAILY 01/04/23 01/04/23 History (Jardiance) fluoxetine 40 mg capsule 40 mg PO DAILY 01/04/23 01/04/23 History ipratropium bromide 0.02 % 0.5 mg inhalation Q6H PRN 01/04/23 01/05/23 History solution for inhalation shortness of breath or wheezing metoprolol succinate 25 mg 37.5 mg PO DAILY 01/04/23 01/04/23 History tablet,extended release 24 hr olanzapine 2.5 mg tablet 2.5 mg PO QPM 01/04/23 01/04/23 History potassium chloride 20 mEq 20 meq PO DAILY 01/04/23 01/04/23 History tablet,extended release(part/cryst) sacubitril 24 mg-valsartan 26 mg 1 tab PO BID 01/04/23 01/04/23 History tablet (Entresto) umeclidinium 62.5 mcg-vilanterol 1 inh inhalation DAILY 01/04/23 01/05/23 History 25 mcg/actuation powdr for inhalation (Anoro Ellipta) Allergies Allergy/AdvReac Type Severity Reaction Status Date / Time No Known Drug Allergies Allergy Verified 11/14/22 12:31 Exam Constitutional Vital Signs, click to edit/add: Last Vital Signs Temp 97.7 F 01/05/23 04:21 Pulse 85 01/05/23 09:44 Resp 16 01/05/23 04:21 BP 108/68 01/05/23 04:31 Pulse Ox 94 L 01/05/23 10:50 O2 Del Method Room Air 01/05/23 10:50 Documenting provider has reviewed patient's vital signs: yes Common normals: no apparent distress, oriented x3 and alert HENMT Common normals: normocephalic Eye Common normals: PERRL and EOMs intact bilaterally Respiratory Common normals: normal respiratory effort and clear to auscultation bilaterally Cardio Common normals: regular rate, regular rhythm, no gallops, no murmurs and no rub GI Common normals: Normal to inspection, nondistended, normoactive bowel sounds present and non-tender Extremity Common normals: no pedal edema Results Labs Labs: Short CBC 01/04/23 Range/Units 15:55 WBC 5.8 (4.0-11.0) 10^3/uL Hgb 10.8 L (12.0-16.0) g/dL Hct 33.2 L (36.0-48.0) % Plt Count 138 L (150-450) 10^3/uL BMP 01/04/23 01/05/23 15:55 05:20 Sodium 142 144 Potassium 3.6 3.6 Chloride 102 106 Carbon Dioxide 36.2 H 31.9 BUN 28.0 H 26.0 H Creatinine 1.74 H 1.64 H Glucose 89 83 Calcium 10.4 H 9.0 Liver Function 01/04/23 01/05/23 Range/Units 15:55 05:20 Total Bilirubin 0.7 0.5 (0.2-1.0) mg/dL AST 26 26 (15-37) U/L ALT 20 <6 L (14-59) U/L Alkaline Phosphatase 54 46 (46-116) U/L Albumin 3.6 3.0 L (3.4-5.0) g/dL Urine 01/04/23 Range/Units 16:45 Urine Color Lt. yellow (YELLOW) Urine Clarity Clear (CLEAR) Urine pH 7.0 (5.0-9.0) Ur Specific [place] 1.010 (1.005-1.025) Urine Protein Negative (NEG/TRACE) mg/dL Urine Glucose (UA) 250 A (NEGATIVE) mg/dL ECG Attestation: ?I have reviewed the pertinent ECG results. Assessment and Plan Assessment and Plan (1) Orthostasis: (2) Parkinson's disease: (3) Chronic HFrEF (heart failure with reduced ejection fraction): (4) Paroxysmal atrial fibrillation: (5) Peripheral vascular disease: (6) Atrial septal defect: (7) CAD (coronary artery disease): (8) Hypertension: (9) COPD (chronic obstructive pulmonary disease): (10) Stage 3b chronic kidney disease: (11) Anemia in chronic kidney disease (CKD): Plan Recent decreased oral intake but continued to take bumex. Developed orthostatic hypotension due to dehydration. Much improved with IV fluids and vitals stable. Discharge home. Hold bumex but resume other medication. Scheduled with cardiology tomorrow and f/u as scheduled for medication adjustment.
--- NOTE | 2023-01-05 12:59 | PC.NURSE ---
patient instructed to follow up with cardiology RAMANA, number for Dr. Cordero provided. Patient and daughter voiced understanding. Patient instructed to drink 2-3 of our hospital cups of water a day. Limit coffee and tea intake as this would further dehydrate her. Patient and daughter voiced understanding. Dr. White was aware of orthostatic bp's.
--- NOTE | 2023-01-06 10:27 | CM.DCFOLLOWU ---
Person spoke with: patient How are you feeling? i am feeling good How is your pain? none Did you understand your discharge instructions? yes Do you have any questions about your discharge instructions? no Were you given any prescriptions at discharge? no Were you able to get your prescriptions filled? n/a Do you understand how to take your medications as ordered? yes and I am holding my water pill Do you have any questions about your follow up appointment and do you plan to keep your follow up appointment? Cardiology follow up appointment 01/07 at 11am and with Alessia Marie NP on 01/18 Is there anything else that you would like to discuss? no Questions/Comments/Concerns/Other: n/a
== END 2023-01-05 13:01 | disposition home or self-care (01) ==
LOC: ER 18:44 → MS 19:25
PROVIDERS: Admitting Provider Internal Medicine; Emergency Provider Emergency Medicine; PCP Nurse Practitioner; Visit Provider Family Medicine
DX: I95.1 Orthostatic hypotension (principal); G20 Parkinson's disease; I13.0 Hypertensive heart and chronic kidney disease with heart failure and stage 1 through stage 4 chronic kidney disease, or unspecified chronic kidney disease; I50.22 Chronic systolic (congestive) heart failure; N18.32 Chronic kidney disease, stage 3b; I48.0 Paroxysmal atrial fibrillation; Q21.10 Atrial septal defect, unspecified; I25.10 Atherosclerotic heart disease of native coronary artery without angina pectoris; J44.9 Chronic obstructive pulmonary disease, unspecified; I73.9 Peripheral vascular disease, unspecified; D63.1 Anemia in chronic kidney disease; Z87.891 Personal history of nicotine dependence; Z79.899 Other long term (current) drug therapy; Z79.01 Long term (current) use of anticoagulants
CPT/HCPCS: 36415; 80053; 81001; 85025; 93005; 94640; 96360; 96361; 99285; G0378; Q3014

== ENCOUNTER 2023-01-07 04:11 | Observation (INO) | payer OTHER, SELFPAY ==
[2023-01-07] VITALS (46 sets, daily range): BP systolic 93–138; BP diastolic 53–91; PULSE 83–124; RESP 16–33; TEMP 36.5–37.1; O2SAT 90–98; BMI 20.8; BMI 21.9
--- NOTE | 2023-01-07 04:32 | PC.NURSE ---
patient arrives via EMS from home. patient states she woke up earlier feeling very short of breath and states when she tried to get up and out of bed she felt dizzy. patient states she called EMS and while waiting used a breathing treatment that helped slightly. patient states she has a history of CHF and on Thursday had her Lasix discontinued due to hypotension, she thinks the shortness of breath is related to no longer taking Lasix. EMS states patient was 93-94% on room air but they placed patient on 2L NC o2 for ride to this ER. patient arrives and is placed on room air, patient is 95% on room air. patient states she does not feel like she has chest pain but states it feels like something is sitting on her chest causing pressure that makes it hard to breathe.
--- NOTE | 2023-01-07 04:48 | ED_ITS ---
HPI - SOB/Dyspnea General Chief Complaint: Shortness of Breath/Dyspnea Stated Complaint: SHORTNESS OF BREATH Time Seen by Provider: 01/07/23 04:23 Source: patient Mode of arrival: ambulance History of Present Illness HPI Narrative: past history of 02 dependent COPD. Past history of CHF. States was recently discharged and her water pill was d/brock due to hypotension. Became short of breath this AM and felt a heaviness on her chest. Was not able to catch her breath and called 911. transferred here by [facility]. Chest pressure has resolved. She is still short of breath but no more than her usual at this time. No fever. MD elicited complaint: shortness of breath and cough Pertinent past history: congestive heart failure Related Data Home Medications Medication Instructions Recorded Confirmed albuterol sulfate 2.5 mg/3 mL 2.5 mg inhalation Q6H PRN 01/04/23 01/05/23 (0.083 %) solution for nebulization shortness of breath or wheezing alendronate 70 mg tablet 70 mg PO QWEEK 01/04/23 01/04/23 apixaban 2.5 mg tablet (Eliquis) 2.5 mg PO BID 01/04/23 01/04/23 atorvastatin 80 mg tablet 80 mg PO DAILY 01/04/23 01/04/23 bumetanide 1 mg tablet 2 mg PO BID 01/04/23 01/04/23 carbidopa 10 mg-levodopa 100 mg 1 tab PO TID 01/04/23 01/04/23 tablet empagliflozin 10 mg tablet 10 mg PO DAILY 01/04/23 01/04/23 (Jardiance) fluoxetine 40 mg capsule 40 mg PO DAILY 01/04/23 01/04/23 ipratropium bromide 0.02 % 0.5 mg inhalation Q6H PRN 01/04/23 01/05/23 solution for inhalation shortness of breath or wheezing metoprolol succinate 25 mg 37.5 mg PO DAILY 01/04/23 01/04/23 tablet,extended release 24 hr olanzapine 2.5 mg tablet 2.5 mg PO QPM 01/04/23 01/04/23 potassium chloride 20 mEq 20 meq PO DAILY 01/04/23 01/04/23 tablet,extended release(part/cryst) sacubitril 24 mg-valsartan 26 mg 1 tab PO BID 01/04/23 01/04/23 tablet (Entresto) umeclidinium 62.5 mcg-vilanterol 1 inh inhalation DAILY 01/04/23 01/05/23 25 mcg/actuation powdr for inhalation (Anoro Ellipta) Allergies Allergy/AdvReac Type Severity Reaction Status Date / Time No Known Drug Allergies Allergy Verified 11/14/22 12:31 Review of Systems ROS Status of ROS 10 or more systems reviewed and unremarkable except as noted in history and below Cardiovascular Reports: chest pain Respiratory Reports: shortness of breath and cough PFSH PFS Medical History (Updated 01/07/23 @ 18:57 by CRYSTAL MAKI) Family History (Updated 01/04/23 @ 20:14 by Swapna Yu) Father Family history of CHF (congestive heart failure) Family history of hypertension Mother Family history of hypertension Family history of stroke Social History (Updated 01/04/23 @ 20:16 by Swapna Yu) Within the past year, how often did you have a drink containing alcohol: never Within the past year, how often did you have six or more drinks on one occasion: never Score interpretation: A score less than 3 is consistent with normal alcohol consumption. 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 Known occupational exposures/hazards: No Highest level of school completed/degree received: 11th grade Do you want help with school or training: No Are you now , , , , never or living with a partner: In a typical week, how many times do you talk on the telephone with family, friends, or neighbors: 3 or more times per week How often do you get together with friends or relatives: 3 or more times per week How often do you attend quaker or shinto services: 4 or more times per year Do you belong to any clubs or organizations such as quaker groups unions, fraternal or athletic groups, or school groups: no Total score: 2 Score interpretation: A score of greater than or equal to 2 indicates the lowest level of social isolation. Little interest or pleasure in doing things: not at all Feeling down, depressed, or hopeless: not at all Feel stressed/tense/nervous/anxious/difficulty sleeping: not at all Due to disability, difficulty making decisions: No Do you think of yourself as: straight/heterosexual Gender Identity: female Exam Constitutional Vital Signs, click to edit/add: Last Vital Signs Temp 98.1 F 01/07/23 13:58 Pulse 96 H 01/07/23 17:48 Resp 16 01/07/23 13:58 BP 97/53 01/07/23 13:58 Pulse Ox 98 01/07/23 15:50 O2 Del Method Nasal Cannula 01/07/23 15:50 O2 Flow Rate 2 01/07/23 15:50 Common normals: oriented x3 and alert Eye Common normals: EOMs intact bilaterally and conjunctivae normal Respiratory Other: mild resp distress. Faint fibrotic crackles at bases Cardio Rate: tachycardic Rhythm: abnormal rhythm GI Common normals: Normal to inspection, nondistended, normoactive bowel sounds present, soft to palpation and non-tender Extremity Common normals: normal to inspection and full ROM Neuro Common normals: oriented x3, CN's II-XII intact bilaterally, moves all extremities and no focal motor deficits Psych Appearance: grossly normal Course Vital Signs Vital signs: Vital Signs Temperature 98.5 F 01/07/23 04:13 Pulse Rate 108 H 01/07/23 04:13 Respiratory Rate 18 01/07/23 04:13 Blood Pressure 124/79 01/07/23 04:13 Pulse Oximetry 97 01/07/23 04:13 Oxygen Delivery Method Room Air 01/07/23 04:13 Temperature 98.1 F 01/07/23 13:58 Pulse Rate 96 H 01/07/23 17:48 Respiratory Rate 16 01/07/23 13:58 Blood Pressure 97/53 01/07/23 13:58 Pulse Oximetry 98 01/07/23 15:50 Oxygen Delivery Method Nasal Cannula 01/07/23 15:50 Oxygen Delivery Flow Rate 2 01/07/23 15:50 MDM - SOB/Dyspnea MDM Narrative Medical decision making narrative: patient presents complaining of shortness of breath and chest heaviness. Recently her Bumex was held due to hypotension. returns via [facility]. Exam with bibasilar fibrotic crackles. BNP elevated and cxray with findings of vascular congestion. xray also suggest possible pneumonia. Clinically she does not appear to have pneumonia. She is afebrile and has normal WBC. Discussed with the admitting Physician Dr White. Will admit for CHF and A. Fib Lab Data Labs: Lab Results 01/07/23 01/07/23 Range/Units 05:00 06:45 WBC 9.0 (4.0-11.0) 10^3/uL RBC 3.37 L (4.20-5.40) 10^6/uL Hgb 11.2 L (12.0-16.0) g/dL Hct 34.3 L (36.0-48.0) % MCV 101.8 H (81.0-99.0) fL MCH 33.2 (26.7-34.0) pg MCHC 32.7 (29.9-35.2) g/dL RDW 15.1 H (11.0-15.0) % Plt Count 113 L (150-450) 10^3/uL MPV 10.0 (9.5-13.5) fL Neut % (Auto) 78.7 H (43.0-75.0) % Lymph % (Auto) 12.2 L (20.5-60.0) % [place] % (Auto) 8.0 (1.7-12.0) % Eos % (Auto) 0.3 L (0.9-7.0) % Baso % (Auto) 0.6 (0.2-2.0) % Neut # (Auto) 7.1 H (1.4-6.5) 10^3/uL Lymph # (Auto) 1.1 L (1.2-3.8) 10^3/uL [place] # (Auto) 0.7 (0.3-0.8) 10^3/uL Eos # (Auto) 0.0 (0.0-0.7) 10^3/uL Baso # (Auto) 0.1 (0.0-0.1) 10^3/uL Abs Immat Gran (auto) 0.02 (0.00-0.03) 10^3/uL Imm/Tot Granulo (auto) 0.2 (0.0-0.5) % Sodium 141 (136-145) mmol/L Potassium 5.3 H (3.5-5.1) mmol/L Chloride 107 (98-107) mmol/L Carbon Dioxide 28.8 (21.0-32.0) mmol/L Anion Gap 10.5 BUN 26.0 H (7.0-18.0) mg/dL Creatinine 1.55 H (0.55-1.02) mg/dL Est GFR ( Amer) 39 L (>=60) Est GFR (Non-Af Amer) 32 L (>=60) BUN/Creatinine Ratio 16.8 Glucose 101 (74-106) mg/dL Calcium 10.0 (8.5-10.1) mg/dL Troponin I High Sens 33.5 (4.0-51.3) pg/mL NT-Pro-B Natriuret Pep 75200.0 H* (<=1800.0) pg/mL SARS-CoV-2 (PCR) Negative (NEGATIVE) SARS-CoV-2 RNA (JOHNNY) Not detected (NOT DETECTE) Critical Care Time Critical Care Time Critical Care Time: Yes Total Critical Care Time: 30 Attestation: 30min critical care time. Time spent independently re evaluating and managing patient's CHF, COPD and A. Fib Discharge Plan Discharge Chief Complaint: Shortness of Breath/Dyspnea Clinical Impression: Atrial fibrillation with controlled ventricular rate, CHF exacerbation Patient Disposition: Admitted As Inpatient Time of Disposition Decision: 06:54 Condition: Good Discharge Date/Time: 01/07/23 08:05
--- NOTE | 2023-01-07 04:52 | XR_ITS ---
The [address] [address] Patient Name: JUAQUIN CASTRO MRN: [id number] date: 1940 Sex: F Assigned Patient Location: ER Current Patient Location: ED.MAIN Accession/Order Number: [id number] Exam Date: 01/07/2023 05:08 Report Date: 01/07/2023 05:26 At the request of: JESUS GAMBOA Procedure: XR chest 1V EXAM: XR chest 1V HISTORY: short of breath COMPARISON: Chest x-ray, O2 2022. TECHNIQUE: AP upright portable chest x-ray. FINDINGS: The heart is moderately enlarged. There is pulmonary vascular congestion with mild interstitial edema in the lower lung regions. Superimposed right basilar infiltrate or atelectasis is suspected. There is background COPD with small bilateral pleural effusions. Prior internal fixation of the left clavicle is noted. No acute osseous findings are seen. XR/XR chest 1V IMPRESSION: COPD with findings suspicious for low-grade congestive heart failure. Superimposed right basilar pneumonia, aspiration or atelectasis cannot be excluded, with suspected small bilateral pleural effusions. Electronically authenticated by: YUE LOUIS Date: 01/07/2023 05:26
--- NOTE | 2023-01-07 04:54 | ECG_ITS ---
[facility] Test Date: 2023-01-07 Pat Name: JUAQUIN CASTRO Department: Room: - Gender: Female Heater Tender: : 1940 Requested By: [id number] Order Number: [id number] Reading MD: CHRISTIE TEMPLETON Measurements Intervals [place] Rate: 104 P: -[id number] VA: -[id number] QRS: 102 QRSD: 84 T: 240 QT: 344 QTc: 405 Interpretive Statements 29652 Atrial fibrillation with rapid ventricular response [address] depression, probably digitalis effect 98611 Twave abnormality, possible lateral ischemia or digitalis effect 99095 Twave abnormality, possible inferior ischemia or digitalis effect 7100 Abnormal right axis deviation 9150 abnormal ECG Compared to ECG 01/04/2023 15:22:16 Right-axis deviation now present ST (T wave) deviation still present Possible ischemia still present Electronically Signed On 01-07-2023 6:20:02 EDT by CHRISTIE TEMPLETON
[2023-01-07 05:14] LABS: Basophils Absolute Auto 0.1 10^3/uL (0.0-0.1); Basophils Percent Auto 0.6 % (0.2-2.0); Eosinophils Percent Auto 0.3 % (0.9-7.0); Hematocrit 34.3 % (36.0-48.0); Hemoglobin 11.2 g/dL (12.0-16.0); Immature Granulocytes Abs Auto 0.02 10^3/uL (0.00-0.03); Immature Granulocytes Pct Auto 0.2 % (0.0-0.5); Lymphocytes Absolute Auto 1.1 10^3/uL (1.2-3.8); Lymphocytes Percent Auto 12.2 % (20.5-60.0); Mean Corpuscular HGB Conc 32.7 g/dL (29.9-35.2); Mean Corpuscular Hemoglobin 33.2 pg (26.7-34.0); Mean Corpuscular Volume 101.8 fL (81.0-99.0); Monocytes Absolute Auto 0.7 10^3/uL (0.3-0.8); Neutrophils Absolute Auto 7.1 10^3/uL (1.4-6.5); Neutrophils Percent Auto 78.7 % (43.0-75.0); Platelet Count 113 10^3/uL (150-450); Red Blood Count 3.37 10^6/uL (4.20-5.40); Red Cell Distribution Width 15.1 % (11.0-15.0)
[2023-01-07] MEDS: METHYLPREDNISOLONE SOD SUCC PF 125 MG/2 ML VIAL IVP (05:29)
[2023-01-07 05:39] LABS: Anion Gap 10.5; BUN Creatinine Ratio 16.8; Carbon Dioxide 28.8 mmol/L (21.0-32.0); Chloride 107 mmol/L (98-107); Estimated GFR (African America 39 (>=60); Estimated GFR (Non-African Ame 32 (>=60); Glucose 101 mg/dL (74-106); Potassium 5.3 mmol/L (3.5-5.1); Sodium 141 mmol/L (136-145); Troponin I High Sensitivity 33.5 pg/mL (4.0-51.3)
[2023-01-07] MEDS: BUMETANIDE 1 MG/4 ML VIAL 2 MG IVP (06:51)
[2023-01-07 07:26] LABS: SARS-CoV-2 Ag NEGATIVE (NEGATIVE)
[2023-01-07] MEDS: IPRATROPIUM/ALBUTEROL SULFATE 3 ML AMPUL.NEB IH ×3 (10:19→20:29)
--- NOTE | 2023-01-07 10:48 | CM.NOTE ---
Rounds made with Dr. White. No plan for discharge today.
--- NOTE | 2023-01-07 11:17 | PM.HP ---
H&P: HPI History of Present Illness Chief complaint: SOB Narrative: 82 y/o female to ER with SOB. Admitted 01/04-01/05 with hypotension. Review or records indicated patient had bumex dose decreased few weeks prior but was still taking higher dose. Had decreased PO and treated with IV fluids. Improved in hospital and discharged. Reported scheduled to see cardiology 01/06 and advised to hold bumex until seen. Patient saw neurology, not cardiology. Continued to hold bumex. Developed increased SOB and fatigue. Hard to stay active due to SOB and to ER. BNP elevated and chest x-ray with signs of fluid overload and admitted. Review of Systems ROS Constitutional Denies: fever, chills or night sweats Cardiovascular Reports: edema; Denies: chest pain, palpitations or lightheadedness Respiratory Reports: shortness of breath; Denies: cough or wheezing Gastrointestinal Denies: abdominal pain, nausea, vomiting or diarrhea Genitourinary Denies: painful urination [facility] Medical History (Updated 01/07/23 @ 11:22 by Shaheed White MD) Family History (Updated 01/04/23 @ 20:14 by Swapna Yu) Father Family history of CHF (congestive heart failure) Family history of hypertension Mother Family history of hypertension Family history of stroke Social History (Updated 01/04/23 @ 20:16 by Swapna Yu) Within the past year, how often did you have a drink containing alcohol: never Within the past year, how often did you have six or more drinks on one occasion: never Score interpretation: A score less than 3 is consistent with normal alcohol consumption. 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 Known occupational exposures/hazards: No Highest level of school completed/degree received: 11th grade Do you want help with school or training: No Are you now , , , , never or living with a partner: In a typical week, how many times do you talk on the telephone with family, friends, or neighbors: 3 or more times per week How often do you get together with friends or relatives: 3 or more times per week How often do you attend yazidism or alevism services: 4 or more times per year Do you belong to any clubs or organizations such as yazidism groups unions, [employer] or athletic groups, or school groups: no Total score: 2 Score interpretation: A score of greater than or equal to 2 indicates the lowest level of social isolation. Little interest or pleasure in doing things: not at all Feeling down, depressed, or hopeless: not at all Feel stressed/tense/nervous/anxious/difficulty sleeping: not at all Due to disability, difficulty making decisions: No Do you think of yourself as: straight/heterosexual Gender Identity: female Meds Home Medications and Allergies Home Medications Medication Instructions Recorded Confirmed Type albuterol sulfate 2.5 mg/3 mL 2.5 mg inhalation Q6H PRN 01/04/23 01/05/23 History (0.083 %) solution for nebulization shortness of breath or wheezing alendronate 70 mg tablet 70 mg PO QWEEK 01/04/23 01/04/23 History apixaban 2.5 mg tablet (Eliquis) 2.5 mg PO BID 01/04/23 01/04/23 History atorvastatin 80 mg tablet 80 mg PO DAILY 01/04/23 01/04/23 History bumetanide 1 mg tablet 2 mg PO BID 01/04/23 01/04/23 History carbidopa 10 mg-levodopa 100 mg 1 tab PO TID 01/04/23 01/04/23 History tablet empagliflozin 10 mg tablet 10 mg PO DAILY 01/04/23 01/04/23 History (Jardiance) fluoxetine 40 mg capsule 40 mg PO DAILY 01/04/23 01/04/23 History ipratropium bromide 0.02 % 0.5 mg inhalation Q6H PRN 01/04/23 01/05/23 History solution for inhalation shortness of breath or wheezing metoprolol succinate 25 mg 37.5 mg PO DAILY 01/04/23 01/04/23 History tablet,extended release 24 hr olanzapine 2.5 mg tablet 2.5 mg PO QPM 01/04/23 01/04/23 History potassium chloride 20 mEq 20 meq PO DAILY 01/04/23 01/04/23 History tablet,extended release(part/cryst) sacubitril 24 mg-valsartan 26 mg 1 tab PO BID 01/04/23 01/04/23 History tablet (Entresto) umeclidinium 62.5 mcg-vilanterol 1 inh inhalation DAILY 01/04/23 01/05/23 History 25 mcg/actuation powdr for inhalation (Anoro Ellipta) Allergies Allergy/AdvReac Type Severity Reaction Status Date / Time No Known Drug Allergies Allergy Verified 11/14/22 12:31 Exam Constitutional Vital Signs, click to edit/add: Last Vital Signs Temp 98.8 F 01/07/23 08:56 Pulse 106 H 01/07/23 09:54 Resp 18 01/07/23 08:56 BP 130/85 01/07/23 08:56 Pulse Ox 95 01/07/23 10:21 O2 Del Method Nasal Cannula 01/07/23 10:21 O2 Flow Rate 2 01/07/23 10:21 Documenting provider has reviewed patient's vital signs: yes Common normals: no apparent distress, oriented x3 and alert HENMT Common normals: normocephalic Respiratory Common normals: normal respiratory effort and clear to auscultation bilaterally Cardio Common normals: no gallops, no murmurs and no rub Rhythm: abnormal rhythm irregularly irregular GI Common normals: Normal to inspection, nondistended, normoactive bowel sounds present and non-tender Extremity General: edema (1+ bipedal pitting edema) Results Labs Labs: Short CBC 01/07/23 Range/Units 05:00 WBC 9.0 (4.0-11.0) 10^3/uL Hgb 11.2 L (12.0-16.0) g/dL Hct 34.3 L (36.0-48.0) % Plt Count 113 L (150-450) 10^3/uL BMP 01/07/23 05:00 Sodium 141 Potassium 5.3 H Chloride 107 Carbon Dioxide 28.8 BUN 26.0 H Creatinine 1.55 H Glucose 101 Calcium 10.0 Imaging Chest x-ray: Attestation: I have reviewed the pertinent imaging results. Assessment and Plan Assessment and Plan (1) Acute on chronic HFrEF (heart failure with reduced ejection fraction): (2) Paroxysmal atrial fibrillation: (3) Hypertension: (4) CAD (coronary artery disease): (5) COPD (chronic obstructive pulmonary disease): (6) Peripheral vascular disease: (7) Parkinson's disease: (8) Stage 3b chronic kidney disease: (9) Anemia in chronic kidney disease (CKD): (10) Atrial septal defect: Plan Start IV lasix for CHF. Consult cardiology for adjustment of medication. Resume home medication. Start PT for weakness. Monitor labs.
[2023-01-07] MEDS: CARBIDOPA/LEVODOPA 10 MG/100 MG TABLET 1 TAB PO ×2 (11:29→17:45)
--- NOTE | 2023-01-07 11:35 | DIETREC ---
Nutrition Recommendations: 1. Heart-Healthy Diet restriction. Reviewed with
--- NOTE | 2023-01-07 11:51 | SWNOTE1 ---
SW met with pt to discuss dc needs. Pt's daughter in room as well. Pt's daughter lives 90 minutes away and she comes to check on her every other weekend. Pt's daughter expressed she is trying to have her mother move in with her before winter comes. SW asked pt if she was open to this, pt concerned about losing her independence and being a burden. SW expressed to pt to really think about her own safety and the benefits of moving in with daughter. Pt uses a walker at all times at home and she lives in [address] home. Pt has an elevator in the home so she does not have to use any stairs. Pt wears home oxygen, daughter thinks it is 2 liters at night only. Pt thinks it is from [facility]. Pt does have home health coming in and they both think it is [facility]. SW to clarify with [facility] and [facility]. Physical therapy coming in room to work with pt. Pt's daughter also mentioned a hospital bed, SW to bring daughter the criteria for a hospital bed and let her know pt's PCP will have to look into getting her one. Daughter was thinking for her home once pt moves in with her.
--- NOTE | 2023-01-07 12:07 | SWNOTE1 ---
MALAIKA called [facility] and they ended services in September. MALAIKA to check with daughter again as she stated the grand-daughter called this morning to cancel therapy
--- NOTE | 2023-01-07 12:11 | SWNOTE1 ---
SW called [facility] and pt does have a non-invasive vent through them, but then Yessica at [facility] stated she does not have oxygen. MALAIKA then asked what the non-invasive vent was for and she stated she will have respiratory therapy call SW back. At this time MALAIKA is unsure of what kind of oxygen pt does or does not have at home, waiting for call back.
--- NOTE | 2023-01-07 12:31 | SWNOTE1 ---
SW spoke with pt and daughter again in regards to the HH. Pt's daughter had HH phone number and gave to SW. SW called and pt does have [facility]. SW also reviewed ABDULLAHI form with pt and daughter, they voiced understanding, no questions. Pt's daughter signed form, original given to pt and copy placed in chart.
[2023-01-07 12:47] LABS: SARS-CoV-2 NAA NOT DETECTED (NOT DETECTE)
[2023-01-07] MEDS: FUROSEMIDE 40 MG/4 ML VIAL IVP (12:56)
--- NOTE | 2023-01-07 13:21 | SWNOTE1 ---
MALAIKA spoke with Reilly at [facility] and pt does have a non-invasive vent at home with a 2 liter oxygen bleed in. She is supposed to wear this at night. She has a concentrator at home no portables. MALAIKA let doctor know.
--- NOTE | 2023-01-07 18:47 | P.CACN_ITS ---
History of Present Illness History of Present Illness Consult date: 01/07/23 Requesting physician: Shaheed White Consult reason: congestive heart failure Chief complaint: SOB Review of Systems ROS Cardiovascular Reports: edema and shortness of breath with exertion [facility] Medical History (Updated 01/07/23 @ 18:57 by CRYSTAL MAKI) Family History (Updated 01/04/23 @ 20:14 by Swapna Yu) Father Family history of CHF (congestive heart failure) Family history of hypertension Mother Family history of hypertension Family history of stroke Social History (Updated 01/04/23 @ 20:16 by Swapna Yu) Within the past year, how often did you have a drink containing alcohol: never Within the past year, how often did you have six or more drinks on one occasion: never Score interpretation: A score less than 3 is consistent with normal alcohol consumption. 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 Known occupational exposures/hazards: No Highest level of school completed/degree received: 11th grade Do you want help with school or training: No Are you now , , , , never or living with a partner: In a typical week, how many times do you talk on the telephone with family, friends, or neighbors: 3 or more times per week How often do you get together with friends or relatives: 3 or more times per week How often do you attend synagogue or christianity services: 4 or more times per year Do you belong to any clubs or organizations such as synagogue groups unions, fraternal or athletic groups, or school groups: no Total score: 2 Score interpretation: A score of greater than or equal to 2 indicates the lowest level of social isolation. Little interest or pleasure in doing things: not at all Feeling down, depressed, or hopeless: not at all Feel stressed/tense/nervous/anxious/difficulty sleeping: not at all Due to disability, difficulty making decisions: No Do you think of yourself as: straight/heterosexual Gender Identity: female Meds Home Medications and Allergies Home Medications Medication Instructions Recorded Confirmed Type albuterol sulfate 2.5 mg/3 mL 2.5 mg inhalation Q6H PRN 01/04/23 01/05/23 History (0.083 %) solution for nebulization shortness of breath or wheezing alendronate 70 mg tablet 70 mg PO QWEEK 01/04/23 01/04/23 History apixaban 2.5 mg tablet (Eliquis) 2.5 mg PO BID 01/04/23 01/04/23 History atorvastatin 80 mg tablet 80 mg PO DAILY 01/04/23 01/04/23 History bumetanide 1 mg tablet 2 mg PO BID 01/04/23 01/04/23 History carbidopa 10 mg-levodopa 100 mg 1 tab PO TID 01/04/23 01/04/23 History tablet empagliflozin 10 mg tablet 10 mg PO DAILY 01/04/23 01/04/23 History (Jardiance) fluoxetine 40 mg capsule 40 mg PO DAILY 01/04/23 01/04/23 History ipratropium bromide 0.02 % 0.5 mg inhalation Q6H PRN 01/04/23 01/05/23 History solution for inhalation shortness of breath or wheezing metoprolol succinate 25 mg 37.5 mg PO DAILY 01/04/23 01/04/23 History tablet,extended release 24 hr olanzapine 2.5 mg tablet 2.5 mg PO QPM 01/04/23 01/04/23 History potassium chloride 20 mEq 20 meq PO DAILY 01/04/23 01/04/23 History tablet,extended release(part/cryst) sacubitril 24 mg-valsartan 26 mg 1 tab PO BID 01/04/23 01/04/23 History tablet (Entresto) umeclidinium 62.5 mcg-vilanterol 1 inh inhalation DAILY 01/04/23 01/05/23 History 25 mcg/actuation powdr for inhalation (Anoro Ellipta) Allergies Allergy/AdvReac Type Severity Reaction Status Date / Time No Known Drug Allergies Allergy Verified 11/14/22 12:31 Exam Constitutional Vital Signs, click to edit/add: Last Vital Signs Temp 98.1 F 01/07/23 13:58 Pulse 96 H 01/07/23 17:48 Resp 16 01/07/23 13:58 BP 97/53 01/07/23 13:58 Pulse Ox 98 01/07/23 15:50 O2 Del Method Nasal Cannula 01/07/23 15:50 O2 Flow Rate 2 01/07/23 15:50 Orientation/consciousness: Yes oriented to person, Yes oriented to place and Yes lethargic Neck & C-Spine General: JVD Respiratory Auscultation: clear to auscultation bilaterally Cardio Jugular venous distention: JVD to the level of the angle of the jaw and other Rhythm: abnormal rhythm irregularly irregular Heart sounds: S1 normal and S2 normal Peripheral pulses: radial pulses present Extremity Common normals: pedal edema (bilateral +2 edema in lower extremities) Results Labs and Meds Lab results: CBC 01/07/23 Range/Units 05:00 WBC 9.0 (4.0-11.0) 10^3/uL RBC 3.37 L (4.20-5.40) 10^6/uL Hgb 11.2 L (12.0-16.0) g/dL Hct 34.3 L (36.0-48.0) % Plt Count 113 L (150-450) 10^3/uL Neut # (Auto) 7.1 H (1.4-6.5) 10^3/uL Lymph # (Auto) 1.1 L (1.2-3.8) 10^3/uL [place] # (Auto) 0.7 (0.3-0.8) 10^3/uL Eos # (Auto) 0.0 (0.0-0.7) 10^3/uL Baso # (Auto) 0.1 (0.0-0.1) 10^3/uL Comprehensive Metabolic Panel 01/07/23 Range/Units 05:00 Sodium 141 (136-145) mmol/L Potassium 5.3 H (3.5-5.1) mmol/L Chloride 107 (98-107) mmol/L Carbon Dioxide 28.8 (21.0-32.0) mmol/L BUN 26.0 H (7.0-18.0) mg/dL Creatinine 1.55 H (0.55-1.02) mg/dL Glucose 101 (74-106) mg/dL Calcium 10.0 (8.5-10.1) mg/dL Intake and Output 01/07/23 01/07/23 01/07/23 07:59 15:59 23:59 Intake Total 120 / 120 Output Total 800 / 1250 450 / 1250 Balance -800 / -1130 -330 / -1130 Intake: Oral 120 / 120 Output: Urine 800 / 1250 450 / 1250 Other: Weight 56.699 kg 59.602 kg Patient Weight 01/08/23 07:59 Weight 59.602 kg Assessment and Plan Assessment and Plan (1) Acute on chronic HFrEF (heart failure with reduced ejection fraction): Assessment and Plan: She is admitted with worsening dyspnea and leg edema in the setting of holding diuretic therapy. Her BNP is significantly elevated. I agree with the current plan for IV lasix for diuresis. Renal function appears stable. I recommend following renal function as diuresis progresses. Continue current beta emiliano, entresto and SGLT2i. Her blood pressure and heart rate are in good control. She will likely need 2-3 days of diuresis in the hospital. She recently had a PEREZ that showed LV EF of 25% with no significant valvular dysfunction. (2) Hypertension: (3) CAD (coronary artery disease): (4) COPD (chronic obstructive pulmonary disease): (5) Peripheral vascular disease: (6) Parkinson's disease: (7) Stage 3b chronic kidney disease: (8) Anemia in chronic kidney disease (CKD): (9) Atrial septal defect: (10) Longstanding persistent atrial fibrillation: Assessment and Plan: currently rate controlled. continue eliquis. Plan Diuresis as above. Continue anticoagulation for atrial fibrillation.
[2023-01-07] MEDS: SACUBITRIL/VALSARTAN 1 EACH TABLET 1 TAB PO (21:27)
[2023-01-07] MEDS: OLANZapine 5 MG TABLET 2.5 MG PO (21:27)
[2023-01-07] MEDS: APIXABAN 5 MG TABLET 2.5 MG PO (21:27)
[2023-01-08] VITALS (21 sets, daily range): BP systolic 96–110; BP diastolic 64–68; PULSE 93–110; RESP 16–18; TEMP 36.4–36.6; O2SAT 93–97
[2023-01-08] MEDS: FUROSEMIDE 40 MG/4 ML VIAL IVP ×2 (01:05→11:00)
[2023-01-08] MEDS: IPRATROPIUM/ALBUTEROL SULFATE 3 ML AMPUL.NEB IH ×4 (04:57→21:29)
[2023-01-08] MEDS: CARBIDOPA/LEVODOPA 10 MG/100 MG TABLET 1 TAB PO ×3 (05:52→17:23)
[2023-01-08 05:56] LABS: Hematocrit 31.9 % (36.0-48.0); Hemoglobin 10.4 g/dL (12.0-16.0); Mean Corpuscular HGB Conc 32.6 g/dL (29.9-35.2); Mean Corpuscular Hemoglobin 32.7 pg (26.7-34.0); Mean Corpuscular Volume 100.3 fL (81.0-99.0); Mean Platelet Volume 10.8 fL (9.5-13.5); Platelet Count 121 10^3/uL (150-450); Red Blood Count 3.18 10^6/uL (4.20-5.40); White Blood Count 10.2 10^3/uL (4.0-11.0)
--- NOTE | 2023-01-08 06:00 | XR_ITS ---
The [address] [address] Patient Name: JUAQUIN CASTRO MRN: [id number] date: 1940 Sex: F Assigned Patient Location: [place] Current Patient Location: [place] Accession/Order Number: [id number] Exam Date: 01/08/2023 05:31 Report Date: 01/08/2023 07:14 At the request of: JENNY DELGADO Procedure: XR chest 2V EXAMINATION: XR chest 2V HISTORY: CHF COMPARISON: 01/07/2023 TECHNIQUE: PA and lateral FINDINGS: LUNGS: Mild bibasilar opacities, improved VASCULATURE: No increased pulmonary vasculature. PLEURA: No pneumothorax. Small bilateral pleural effusions blunting the lateral costophrenic angles CARDIAC: No cardiomegaly or cardiac silhouette abnormality. MEDIASTINUM: No visible mass or adenopathy. BONES: Remote fixation of the left clavicle OTHER: Negative. XR/XR chest 2V IMPRESSION: Interval improvement in pulmonary edema with persistent mild bibasilar infiltrates Slight increase in small bilateral pleural effusions Electronically authenticated by: AMINA CARDONA Date: 01/08/2023 07:14
[2023-01-08 06:46] LABS: Anion Gap 12.3; BUN Creatinine Ratio 24.4; Carbon Dioxide 27.7 mmol/L (21.0-32.0); Chloride 107 mmol/L (98-107); Estimated GFR (African America 37 (>=60); Estimated GFR (Non-African Ame 30 (>=60); Glucose 148 mg/dL (74-106); Sodium 143 mmol/L (136-145)
[2023-01-08 07:56] LABS: Lymphocytes Absolute Manual 0.81 10^3/uL (1.20-3.80); Monocytes Absolute Manual 0.61 10^3/uL (0.30-0.80); Segmented Neut Absolute Manual 8.77 10^3/uL (1.4-6.5)
[2023-01-08] MEDS: FLUOXETINE HCL 20 MG CAPSULE 40 MG PO (08:26)
[2023-01-08] MEDS: METOPROLOL SUCCINATE 25 MG TAB.ER.24H 37.5 MG PO (08:26)
[2023-01-08] MEDS: CANAGLIFLOZIN 100 MG TABLET PO (08:26)
[2023-01-08] MEDS: APIXABAN 5 MG TABLET 2.5 MG PO ×2 (08:26→20:05)
[2023-01-08] MEDS: SACUBITRIL/VALSARTAN 1 EACH TABLET 1 TAB PO ×2 (08:27→20:05)
[2023-01-08] MEDS: POTASSIUM CHLORIDE 10 MEQ ER TABLET 20 MEQ PO (08:27)
--- NOTE | 2023-01-08 10:23 | CM.NOTE ---
Rounds made with Dr. White, no discharge today. Continue IV diuretics.
--- NOTE | 2023-01-08 11:16 | PM.PN ---
Progress Note: Subjective Subjective Interval history: Patient improved this am. Less SOB and no edema. Continues to have decreased appetite but no emesis or diarrhea. No chest pain or palpitations. No SOB or cough. Afebrile. Evaluated by cardiology and recommendations in chart. Continued weakness and working with PT. Exam Constitutional Vital Signs, click to edit/add: Last Vital Signs Temp 98 F 01/08/23 05:11 Pulse 96 H 01/08/23 10:04 Resp 18 01/08/23 05:11 BP 110/66 01/08/23 05:11 Pulse Ox 97 01/08/23 05:11 O2 Del Method Nasal Cannula 01/08/23 05:11 O2 Flow Rate 2 01/08/23 05:11 Documenting provider has reviewed patient's vital signs: yes Common normals: no apparent distress, oriented x3 and alert HENMT Common normals: normocephalic Eye Common normals: PERRL and EOMs intact bilaterally Respiratory Common normals: normal respiratory effort and clear to auscultation bilaterally Cardio Common normals: no gallops, no murmurs and no rub Rhythm: abnormal rhythm irregularly irregular GI Common normals: Normal to inspection, nondistended, normoactive bowel sounds present and non-tender Extremity Common normals: no pedal edema Progress Note: Objective Labs Labs: Short CBC 01/08/23 Range/Units 04:35 WBC 10.2 (4.0-11.0) 10^3/uL Hgb 10.4 L (12.0-16.0) g/dL Hct 31.9 L (36.0-48.0) % Plt Count 121 L (150-450) 10^3/uL BMP 01/08/23 04:35 Sodium 143 Potassium 4.0 Chloride 107 Carbon Dioxide 27.7 BUN 40.0 H Creatinine 1.64 H Glucose 148 H Calcium 9.0 Progress Note: A&P Assessment and Plan (1) Acute on chronic HFrEF (heart failure with reduced ejection fraction): (2) Paroxysmal atrial fibrillation: (3) Hypertension: (4) CAD (coronary artery disease): (5) COPD (chronic obstructive pulmonary disease): (6) Peripheral vascular disease: (7) Parkinson's disease: (8) Stage 3b chronic kidney disease: (9) Anemia in chronic kidney disease (CKD): (10) Atrial septal defect: Plan Patient slowly improved and continue IV lasix. Continue PT for weakness. Monitor labs and vitals. Likely discharge in am if continue to improve.
--- NOTE | 2023-01-08 14:01 | SWNOTE1 ---
MALAIKA spoke with pt and daughter in room. They had a conversation and decided pt is going to go live with daughter in [facility]. SW did ask pt if that is the plan, she is somewhat in agreement. Pt's daughter would like Home health set up in the area. SW to check on medicare.gov. Pt's daughter would also like physicians in the area as well. SW to print from medicare.gov, SW let daughter know she will have to start making phone calls to set up PCP. Resources printed and MALAIKA to work on home health.
--- NOTE | 2023-01-08 14:34 | SWNOTE1 ---
SW did have [facility] and they are in the [facility] where daughter lives, SW called and sent referral to them.
--- NOTE | 2023-01-08 15:59 | SWNOTE1 ---
[facility] in [place] is not able to accept. SW did ask why and she stated due to insurance. SW did let them know she had [facility] around this area and she stated each area is different and accepts different insurance. SW to update daughter.
--- NOTE | 2023-01-08 16:18 | SWNOTE1 ---
MALAIKA has called 4 other companies in [place] and nobody accepts MALAIKA Casas to check [employer] website.
--- NOTE | 2023-01-08 16:28 | SWNOTE1 ---
SW printed off home health companies from [employer] website and will attempt tomorrow.
[2023-01-08] MEDS: OLANZapine 5 MG TABLET 2.5 MG PO (20:04)
[2023-01-08] MEDS: ATORVASTATIN CALCIUM 40 MG TABLET 80 MG PO (20:05)
[2023-01-09] VITALS (9 sets, daily range): BP systolic 106; BP diastolic 66; PULSE 91–106; RESP 16–20; TEMP 36.7; O2SAT 94–97
--- NOTE | 2023-01-09 00:34 | PC.NURSE ---
help pt back to bed after being in chair, cover up and position HOB as wanted by pt.
[2023-01-09] MEDS: IPRATROPIUM/ALBUTEROL SULFATE 3 ML AMPUL.NEB IH ×2 (04:55→10:59)
[2023-01-09 05:11] LABS: Basophils Percent Auto 0.2 % (0.2-2.0); Eosinophils Absolute Auto 0.1 10^3/uL (0.0-0.7); Eosinophils Percent Auto 1.2 % (0.9-7.0); Hematocrit 31.5 % (36.0-48.0); Hemoglobin 10.2 g/dL (12.0-16.0); Immature Granulocytes Abs Auto 0.04 10^3/uL (0.00-0.03); Immature Granulocytes Pct Auto 0.4 % (0.0-0.5); Lymphocytes Absolute Auto 1.7 10^3/uL (1.2-3.8); Mean Corpuscular HGB Conc 32.4 g/dL (29.9-35.2); Mean Corpuscular Hemoglobin 32.7 pg (26.7-34.0); Mean Platelet Volume 10.6 fL (9.5-13.5); Monocytes Absolute Auto 0.6 10^3/uL (0.3-0.8); Monocytes Percent Auto 5.8 % (1.7-12.0); Neutrophils Absolute Auto 7.9 10^3/uL (1.4-6.5); Neutrophils Percent Auto 76.4 % (43.0-75.0); Platelet Count 142 10^3/uL (150-450); Red Blood Count 3.12 10^6/uL (4.20-5.40); Red Cell Distribution Width 15.3 % (11.0-15.0); White Blood Count 10.3 10^3/uL (4.0-11.0)
[2023-01-09 05:29] LABS: Anion Gap 7.6; BUN Creatinine Ratio 26.2; Calcium 8.5 mg/dL (8.5-10.1); Carbon Dioxide 30.8 mmol/L (21.0-32.0); Chloride 106 mmol/L (98-107); Estimated GFR (African America 42 (>=60); Estimated GFR (Non-African Ame 35 (>=60); Glucose 85 mg/dL (74-106); Potassium 3.4 mmol/L (3.5-5.1); Sodium 141 mmol/L (136-145)
[2023-01-09] MEDS: CARBIDOPA/LEVODOPA 10 MG/100 MG TABLET 1 TAB PO ×2 (06:08→11:42)
[2023-01-09] MEDS: FUROSEMIDE 40 MG/4 ML VIAL IVP (06:08)
--- NOTE | 2023-01-09 07:51 | CM.NOTE ---
Rounds made with melody Paez to discharge to home today. SW setting up HH for pt.
[2023-01-09] MEDS: APIXABAN 5 MG TABLET 2.5 MG PO (08:29)
[2023-01-09] MEDS: CANAGLIFLOZIN 100 MG TABLET PO (08:32)
[2023-01-09] MEDS: FLUOXETINE HCL 20 MG CAPSULE 40 MG PO (08:34)
[2023-01-09] MEDS: METOPROLOL SUCCINATE 25 MG TAB.ER.24H 37.5 MG PO (08:34)
[2023-01-09] MEDS: POTASSIUM CHLORIDE 10 MEQ ER TABLET 20 MEQ PO (08:36)
[2023-01-09] MEDS: SACUBITRIL/VALSARTAN 1 EACH TABLET 1 TAB PO (08:37)
--- NOTE | 2023-01-09 09:11 | PM.DS1 ---
DS: Providers Provider Date of admission: 01/07/23 08:06 Primary care physician: Alessia Nichols Consults: 01/07/23 09:04 Physical Therapy Eval and Treat Routine Reason for consultation: Weakness 01/07/23 11:16 Consult to Cardiology Routine Consulting Provider: CRYSTAL MAKI Reason for consultation: CHF DS: Diagnosis Discharge Diagnosis (1) Acute on chronic HFrEF (heart failure with reduced ejection fraction): (2) Paroxysmal atrial fibrillation: (3) Hypertension: (4) CAD (coronary artery disease): (5) COPD (chronic obstructive pulmonary disease): (6) Peripheral vascular disease: (7) Parkinson's disease: (8) Stage 3b chronic kidney disease: (9) Anemia in chronic kidney disease (CKD): (10) Atrial septal defect: DS: Summary Hospital Course Hospital Course: Reason for admission: See H&P for details. 82 y/o female to ER with SOB. Admitted 01/04-01/05 with hypotension. Review or records indicated patient had bumex dose decreased few weeks prior but was still taking higher dose. Had decreased PO and treated with IV fluids. Improved in hospital and discharged. Reported scheduled to see cardiology 01/06 and advised to hold bumex until seen. Patient saw neurology, not cardiology. Continued to hold bumex. Developed increased SOB and fatigue. Hard to stay active due to SOB and to ER. BNP elevated and chest x-ray with signs of fluid overload and admitted. Hospital course: Started IV lasix and resume home medication. Started PT for weakness. Cardiology consulted and no changes to plan. Patient slowly improved. Less SOB and normal SpO2 on room air. Moving ok with walker. Labs stable. Discharged home in stable condition. Will resume bumex 1 mg BID. Resume other medications as directed. F/u with cardiology as scheduled. Time Spent with Patient Time attestation: Total time spent providing and/or coordinating discharge services: Exam Constitutional Vital Signs, click to edit/add: Last Vital Signs Temp 98.1 F 01/09/23 05:02 Pulse 100 H 01/09/23 08:00 Resp 20 01/09/23 05:02 BP 106/66 01/09/23 05:02 Pulse Ox 94 L 01/09/23 05:02 O2 Del Method Room Air 01/09/23 05:02 O2 Flow Rate 2 01/08/23 20:07 Documenting provider has reviewed patient's vital signs: yes Common normals: no apparent distress, oriented x3 and alert HENMT Common normals: normocephalic Eye Common normals: PERRL and EOMs intact bilaterally Respiratory Common normals: normal respiratory effort and clear to auscultation bilaterally Cardio Common normals: regular rate, no gallops, no murmurs and no rub Rhythm: abnormal rhythm irregularly irregular GI Common normals: Normal to inspection, nondistended, normoactive bowel sounds present and non-tender Extremity Common normals: no pedal edema DS: Data Data Completed and Pending Labs on day of discharge: Labs from last 24 hours 01/09/23 04:19 WBC 10.3 RBC 3.12 L Hgb 10.2 L Hct 31.5 L MCV 101.0 H MCH 32.7 MCHC 32.4 RDW 15.3 H Plt Count 142 L MPV 10.6 Neut % (Auto) 76.4 H Lymph % (Auto) 16.0 L [place] % (Auto) 5.8 Eos % (Auto) 1.2 Baso % (Auto) 0.2 Neut # (Auto) 7.9 H Lymph # (Auto) 1.7 [place] # (Auto) 0.6 Eos # (Auto) 0.1 Baso # (Auto) 0.0 Abs Immat Gran (auto) 0.04 H Imm/Tot Granulo (auto) 0.4 Sodium 141 Potassium 3.4 L Chloride 106 Carbon Dioxide 30.8 Anion Gap 7.6 BUN 38.0 H Creatinine 1.45 H Est GFR ( Amer) 42 L Est GFR (Non-Af Amer) 35 L BUN/Creatinine Ratio 26.2 Glucose 85 Calcium 8.5 Discharge Plan Discharge Disposition: Home, Self-Care Condition: Good Discharge Medications: New bumetanide 1 mg tablet 1 mg PO BID Qty: 1 0RF Continued alendronate 70 mg tablet 70 mg PO QWEEK Patient Comments: Thursday Eliquis 2.5 mg tablet 2.5 mg PO BID atorvastatin 80 mg tablet 80 mg PO DAILY carbidopa-levodopa 10-100 mg tablet 1 tab PO TID Jardiance 10 mg tablet 10 mg PO DAILY fluoxetine 40 mg capsule 40 mg PO DAILY metoprolol succinate 25 mg tablet extended release 24 hr 37.5 mg PO DAILY olanzapine 2.5 mg tablet 2.5 mg PO QPM potassium chloride 20 mEq tablet,ER particles/crystals 20 meq PO DAILY Entresto 24-26 mg tablet 0.5 tab PO BID Anoro Ellipta 62.5-25 mcg/actuation blister with device 1 inh INHALATION DAILY ipratropium bromide 0.02 % solution 0.5 mg inhalation Q6H PRN (Reason: shortness of breath or wheezing) albuterol sulfate 2.5 mg /3 mL (0.083 %) solution for nebulization 2.5 mg inhalation Q6H PRN (Reason: shortness of breath or wheezing) Caltrate 600 plus D 600 mg-20 mcg (800 unit) tablet,chewable 1 tab PO DAILY Centrum Silver 0.4 mg-300 mcg- 250 mcg tablet 1 tab PO DAILY Discontinued bumetanide 1 mg tablet 2 mg PO BID Hold Instructions: Doctor's Order Activity: resume usual activities as tolerated Diet: advance to your usual diet Forms: Portal Instructions Follow Up Appointments: Follow up appt. with [facility] on @ 10:40am Office #: [phone] Follow up appt. with Alessia Vargas on @ 8:40am Office #: [phone]
--- NOTE | 2023-01-09 09:14 | SWNOTE1 ---
MALAIKA called and spoke with [facility] in [place] and they do have a home health company, she provided fax number for [facility]. MALAIKA sent referral.
--- NOTE | 2023-01-09 09:45 | PC.NURSE ---
Patient sitting in chair and requests to be cleaned up. Upon ambulation to bathroom with walker and x1 assist, patient states I don't feel right. My head is spinning. I am weak. I need to sit down . Chair was given and patient was helped to sitting position. Blood pressure was checked at 0925 reading 96/60 and heart rate was 130bpm. Patient alert and oriented but states I feel like my head doesn't belong to me and I am not here right now . Student nurse requests help from instructor.. Rechecked BP at 0932 reading 114/69, heart rate of 87 and SpO2 of 94%. Patient then ambulated back to bed with walker and x2 assist. Patient in bed, personal items within reach, call light within reach, bed locked, arms rails up x2. RN notified of this occurrence.
--- NOTE | 2023-01-09 09:57 | PC.NURSE ---
BP recheck at 0955 reading 107/63, Heart rate 94bpm, and SpO2 93%. Patient alert and oriented but still states I do not know how I feel, I am not here . RN made aware of the situation and will be calling the doctor.
--- NOTE | 2023-01-09 10:05 | DIETREC ---
Recommend Heart Healthy diet. Please see Nutrition Assessment completed 01/07/23.
--- NOTE | 2023-01-09 10:55 | PT.DAILY ---
Physical Therapy Daily Note PT Daily Note/Assess Start: 01/08/23 10:51 Freq: Status: Active Protocol: Document 01/09/23 10:47 PILI (Rec: 01/09/23 10:55 PILI [id number]) Physical Therapy Daily Note/Assessment Time In/Time Out Time In 10:15 Time Out 10:25 Pain In Pain N/A Pain Out Pain N/A Subjective Subjective Pt supine upon arrival. Has been having BP issues per student nurse. Pt remains supine for ther ex today. Therapeutic Exercise Time Therapeutic Exercise Minutes (minutes) 8 Therapeutic Exercise Units 1 Therapeutic Exercise Treatment Therapeutic Exercise Treatment Pt performs active AP, heel slides, abduction slides, SLR, SAQ and hooklying add squeezes 10x ea to improve strength. Total Physical Therapy Time Total Therapy Minutes 8 Total Physical Therapy Units 1 Summary Daily Note Summary Limited session due to BP issues. Pt is able to complete all ex actively without assistance but vc for form.
--- NOTE | 2023-01-09 11:30 | SWNOTE1 ---
SW called [facility], they have received referral but it has not been reviewed. SW requested to have someone review soon as pt will be discharged today. Waiting for call back.
--- NOTE | 2023-01-09 12:02 | SWNOTE1 ---
SW received call back from [facility] and they can not accept as they do not have the staffing. MALAIKA spoke with daughter and pt. SW let daughter know SW has about 2 more places on the [employer] list to try. Daughter did get pt set up with a PCP down in [place] and she has an apt on Thursday. SW let daughter know that they can be discharged and SW can continue to work on and SW will follow up today with her. SW also let pt know if we can not get a home health company in line due to insurance and staffing, the PCP that pt does see on Thursday will be able to assist. Pt's daughter in agreement. SW updated nursing.
--- NOTE | 2023-01-09 13:11 | SWNOTE1 ---
MALAIKA attempted 2 other companies listed on [employer] list in [facility]. They were [place] [employer] and SW already attempted and they did not have staffing. The other companies were in [facility], [place], [place], [place], [place], and [facility]. MALAIKA called to let daughter know.
--- NOTE | 2023-01-12 11:22 | CM.DCFOLLOWU ---
1st attempt follow up call made by Mahamed Jones on 01/12/23, no answer at this time.
--- NOTE | 2023-01-13 15:41 | CM.DCFOLLOWU ---
2nd attempt discharge follow up call made by Mahamed Jones on 01/13/23, no answer at this time
--- NOTE | 2023-01-14 16:26 | CM.DCFOLLOWU ---
3rd attempt discharge follow up call made by Mahamed Jones on 01/14/23, no answer at this time. 3 attempts were made, no answer each time.
== END 2023-01-09 12:06 | disposition home or self-care (01) ==
LOC: ER 05:14 → MS 08:30
PROVIDERS: Admitting Provider Family Medicine; Emergency Provider Internal Medicine; PCP Nurse Practitioner; Visit Provider Family Medicine
DX: I13.0 Hypertensive heart and chronic kidney disease with heart failure and stage 1 through stage 4 chronic kidney disease, or unspecified chronic kidney disease (principal); I50.23 Acute on chronic systolic (congestive) heart failure; I48.0 Paroxysmal atrial fibrillation; I25.10 Atherosclerotic heart disease of native coronary artery without angina pectoris; J44.9 Chronic obstructive pulmonary disease, unspecified; I73.9 Peripheral vascular disease, unspecified; G20 Parkinson's disease; N18.32 Chronic kidney disease, stage 3b; D63.1 Anemia in chronic kidney disease; Q21.10 Atrial septal defect, unspecified; Z87.891 Personal history of nicotine dependence; Z79.01 Long term (current) use of anticoagulants; Z79.899 Other long term (current) drug therapy; Z20.822 Contact with and (suspected) exposure to COVID-19
CPT/HCPCS: 36415; 71045; 71046; 80048; 83880; 84484; 85025; 85027; 87635; 87811; 93005; 94640; 94761; 96374; 96375; 96376; 97110; 97161; 97530; 99285; G0378; J2930; U0003